=== PATIENT | male | born 1955 | race Two or more races ===

== ENCOUNTER 2016-05-14 08:39 | Emergency (ER) | payer MEDICAID, OTHER ==
[~2016-05-14] VITALS: Ht 165.1 cm; Wt 95.3 kg
[2016-05-14 09:30] VITALS: BP 190/107
[2016-05-14] MEDS ORDERED: DIAZEPAM 5 MG TABLET PO ONE (10:00)
[2016-05-14] MEDS ORDERED: MORPHINE SULFATE 10 MG/ML VIAL. IM ONE (10:00)
--- NOTE | 2016-05-14 10:12 | PHYS DOC ---
Past Medical History Past Medical History: Asthma, Diabetes-Type II, Heart Disease, Hypertension, Renal Disease Past Surgical History: Other Additional Past Surgical Histo: right shoulder, kidney Alcohol Use: None Drug Use: None Adult General Chief Complaint Chief Complaint: SHOULDER INJURY [place] [employer] HPI Patient is a 60 year old male with history of hypertension, high cholesterol, diabetes type 2, who presents today with 6 out of 10 sharp chronic bilateral shoulder pain that has been going on for 7 years after an injury. Patient states he had bilateral shoulder surgeries. Patient states he's been following up with Dr. Thakur who has him on meloxicam. Patient states the pain is not easing up with this medicines neither does he sleep well due pain. Patient denies any new injuries. Patient is also requesting to be given a referral to a GI doctor. He states he has chronic rectal bleeding for many years which he has been following up with his PCP. Patient states his PCP told referred him to a GI doctor at [facility]. Patient states he cannot go to [facility] because he took two family members there and they both . Patient is requesting referral to a GI doctor in our facility. Patient states he does not want to be worked up for GI bleed today. He states this is a chronic issue. Patient denies any abdominal pain nausea vomiting. Review of Systems Review of Systems Constitutional: Denies fever or chills [] Eyes: Denies change in visual acuity, redness, or eye pain [] HENT: Denies nasal congestion or sore throat [] Respiratory: Denies cough or shortness of breath [] Cardiovascular: No additional information not addressed in HPI [] GI: Chronic rectal bleeding : Denies dysuria or hematuria [] Musculoskeletal: Chronic shoulder pain Integument: Denies rash or skin lesions [] Neurologic: Denies headache, focal weakness or sensory changes [] Endocrine: Denies polyuria or polydipsia [] Current Medications Current Medications Current Medications Medications (Trade) Dose Ordered Sig/Kylah Start Time Stop Time Status Last Admin Dose Admin Diazepam (Valium) 5 mg 1X ONCE 05/14/16 10:00 05/14/16 10:01 DC Morphine Sulfate 5 mg 1X ONCE 05/14/16 10:00 05/14/16 10:01 DC Allergies Allergies Allergies Coded Allergies Type Severity Reaction Last Updated Verified No Known Drug Allergies 05/14/14 No Physical Exam Physical Exam Constitutional: Well developed, well nourished, no acute distress, non-toxic appearance. [] HENT: Normocephalic, atraumatic, bilateral external ears normal, oropharynx moist, no oral exudates, nose normal. [] Eyes: PERRLA, EOMI, conjunctiva normal, no discharge. [] Neck: Normal range of motion, no tenderness, supple, no stridor. [] Cardiovascular:Heart rate regular rhythm, no murmur [] Lungs & Thorax: Bilateral breath sounds clear to auscultation [] Abdomen: Old healed surgical scar noted on the left lateral abdomen. Bowel sounds normal, soft, no tenderness, no masses, no pulsatile masses. [] Skin: Warm, dry, no erythema, no rash. [] Back: No tenderness, no CVA tenderness. [] Extremities: Bilateral shoulders with no obvious deformity. Diffuse tenderness throughout bilateral shoulders. Slightly Limited range of motion to bilateral shoulders due to pain especially raising the above 90. Adequate adduction of bilateral shoulder. Adequate plantar flexion and dorsiflexion of bilateral forearms. Adequate radial ulnar and media sensation to bilateral forearms. Cap refill less than 2 seconds to bilateral upper extremities. Sensation intact bilateral upper extremities. Neurologic: Alert and oriented X 3, normal motor function, normal sensory function, no focal deficits noted. [] Psychologic: Affect normal, judgement normal, mood normal. [] Current Patient Data Vital Signs Vital Signs Date Time Temp Pulse Resp B/P Pulse Ox O2 Delivery O2 Flow Rate FiO2 05/14/16 09:30 98.1 78 18 96 Room Air 98.1 EKG EKG [] Radiology/Procedures Radiology/Procedures [] Course & Med Decision Making Course & Med Decision Making Pertinent Labs and Imaging studies reviewed. (See chart for details) Patient is in the ED with chronic bilateral shoulder pain. He is requesting something for pain, he is currently on meloxicam. I gave him a prescription for Flexeril,gabapentin and Tylenol#3. He was referred back to his orthopedic doctor or he can follow-up with Dr. Mariee. He also requested a referral to GI for chronic rectal bleeding which he refused workup for today. He was given doctor Propeck contact's number for follow-up. He was provided return precautions and discharged in stable condition. Dragon Disclaimer Dragon Disclaimer This electronic medical record was generated, in whole or in part, using a voice recognition dictation system. Departure Departure Impression: Primary Impression: Chronic shoulder pain Additional Impression: Rectal bleeding Disposition: HOME, SELF-CARE Condition: STABLE Referrals: AUSTEN THAKUR (PCP) Follow-up with your doctor in the next 7 days CHIKIS ALLEN MD Follow-up with the provided GI doctor as soon as possible Patient Instructions: Shoulder Pain Additional Instructions: You were seen for chronic shoulder pain. Please follow-up with your own doctor or the provided orthopedic doctor as soon as possible. Please follow-up with the provided manager technical for rectal bleeding as soon as possible. Come back to the ED at any point symptoms worsen. Scripts Cyclobenzaprine Hcl 10 Mg Tablet1 Tab PO TID #30 TAB Prov:KENNETH BUI APRN 05/14/16 Gabapentin 300 Mg [id number] Mg PO TID #30 CAP Prov:KENNETH BUI APRN 05/14/16 Acetaminophen With Codeine (Tylenol With Codeine #3 Tablet)1 Each Tablet1 Tab PO PRN Q6HRS PRN PAIN #30 TAB Prov:KENNETH BUI APRN 05/14/16 Problem Qualifiers Primary Impression: Chronic shoulder pain Laterality: bilateral Qualified Code: M25.512 - Pain in left shoulder KENNETH BUI APRN May 14, 2016 10:11
[2016-05-14] MEDS ORDERED: CYCL10TA2 PO (10:27)
[2016-05-14] MEDS ORDERED: ACET-704 PO (10:27)
[2016-05-14] MEDS ORDERED: GABA-586 PO (10:27)
== END 2016-05-14 10:33 | disposition home or self-care (01) ==
LOC: ER 08:39
DX: G89.29 Other chronic pain (principal); M25.511 Pain in right shoulder; M25.512 Pain in left shoulder; I10 Essential (primary) hypertension; E78.00 Pure hypercholesterolemia, unspecified; E11.9 Type 2 diabetes mellitus without complications; J45.909 Unspecified asthma, uncomplicated
CPT/HCPCS: 99283